=== PATIENT | male | born 1950 | race Caucasian/White ===

== ENCOUNTER 2017-09-16 11:48 | Inpatient (IN) | payer MEDICARE ==
[~2017-09-16] VITALS: Ht 172.7 cm; Wt 102.0 kg
[~2017-09-16 11:48] MED LIST: BACL10TA PO; LORA0.5T PO
[2017-09-16] MEDS ORDERED: normal saline 1000ML IV soln IV ONE (12:15)
[2017-09-16 12:48] LABS: COLOR,URINE Yellow (Yellow); GLUCOSE, URINE Negative (Neg); KETONES,URINE Negative (Neg); LEUKOCYTE ESTERASE ,URINE Moderate (Neg); NITRITES, URINE Negative (Neg); OCCULT BLOOD,URINE Moderate (Neg); PROTEIN,URINE Negative (Neg)
[2017-09-16 12:51] LABS: CLARITY,URINE SLIGHTLY CLOUDY (Clear); UA COLLECTION TYPE VOIDED
[2017-09-16 12:56] LABS: BACTERIA,URINE 2+ /HPF (Neg); MUCUS STRANDS FEW /LPF (Neg); RBC,URINE 50-100 /HPF (0-2); SQUAMOUS EPITHELIAL CELL,UR FEW /LPF (FEW); WBC CLUMPS,URINE FEW /HPF (NEGATIVE)
[2017-09-16 13:01] LABS: BASOPHILS % (AUTO) 0.3 % (0-1); EOSINOPHILS % (AUTO) 0 % (0-6); HEMATOCRIT 42.9 % (42.0-52.0); HEMOGLOBIN 14.4 g/dl (14.0-17.9); LYMPHOCYTES # (AUTO) 0.3 X10'3 (1.1-4.8); LYMPHOCYTES % (AUTO) 4.2 % (21-51); MEAN CORPUSCULAR HEMOGLOBIN 32.1 PG (27.0-31.0); MEAN CORPUSCULAR HGB CONC 33.5 % (33.0-36.5); MEAN CORPUSCULAR VOLUME 95.9 FL (78-98); MEAN PLATELET VOLUME 9.8 FL (7.4-10.4); MONOCYTES % (AUTO) 0.2 % (2-12); NEUTROPHILS # (AUTO) 6.3 X10'3 (1.8-7.7); NEUTROPHILS % (AUTO) 95.3 % (42-75); PLATELET COUNT 119 X10'3 (140-440); RED BLOOD COUNT 4.47 X10'6 (4.70-6.10); RED CELL DISTRIBUTION WIDTH 14.5 % (11.5-14.5); WHITE BLOOD COUNT 6.6 X10'3 (4.5-11.0)
[2017-09-16 13:11] LABS: INR 1.2 INR; PARTIAL THROMBOPLASTIN TIME 25 SECONDS (22-32)
[2017-09-16 13:16] LABS: ALANINE AMINOTRANSFERASE 35 U/L (12-78); ALBUMIN 3.7 G/DL (3.4-5.0); ALBUMIN/GLOBULIN RATIO 1.1 (1.1-1.5); ALKALINE PHOSPHATASE 133 IU/L (46-116); ANION GAP 10 (8-16); ASPARTATE AMINO TRANSFERASE 24 U/L (10-37); BILIRUBIN,TOTAL 0.6 MG/DL (0.1-1.0); BLOOD UREA NITROGEN 15 MG/DL (7-18); CALCIUM 7.8 MG/DL (8.5-10.1); CHLORIDE 108 MMOL/L (99-107); CREATININE 0.79 MG/DL (0.60-1.10); GLUCOSE 85 MG/DL (70-104); MAGNESIUM 1.8 MG/DL (1.5-2.4); POTASSIUM 4.1 MMOL/L (3.5-5.1); SODIUM 141 MMOL/L (135-145); TOTAL CARBON DIOXIDE 22.6 MMOL/L (24-32); TOTAL PROTEIN 7.2 G/DL (6.4-8.2); eGFR > 90 ML/MIN
[2017-09-16] MEDS ORDERED: CefTRIAXone 2gm/D5W 50ml 50 ML IV ONE (13:25)
[2017-09-16] MEDS ORDERED: baclofen 10mg tablet PO PRN (13:50)
[2017-09-16] MEDS ORDERED: magnesium hydroxide 30ml (MOM) UD suspension PO PRN (13:50)
[2017-09-16] MEDS ORDERED: acetaminophen 325mg tablet PO PRN (13:50)
[2017-09-16] MEDS ORDERED: mag hydrox/Alum hydrox/simeth 30ml oral suspension PO PRN (13:50)
[2017-09-16] MEDS ORDERED: HYDROcodone/acetaminophen 5mg/325mg tablet PO PRN (13:50)
[2017-09-16] MEDS ORDERED: ondansetron/PF 4mg/2ml inj IV PRN (13:50)
[2017-09-16 15:25] VITALS: BP 147/89
[2017-09-16] MEDS ORDERED: CYCL-394 (15:59)
[2017-09-16] MEDS ORDERED: ZOLP5TAB8 PO (15:59)
[2017-09-16] MEDS ORDERED: DOXY100C2 PO (16:04)
[2017-09-16] MEDS ORDERED: FLUT30CR TOP (16:04)
[2017-09-16] MEDS: sodium chloride 0.45% 1,000 ML IV SCH (16:06)
[2017-09-16] MEDS ORDERED: cyclobenzaprine 10mg tablet PO PRN (17:10)
[2017-09-16] MEDS ORDERED: zolpidem 5mg tablet PO PRN (17:10)
[2017-09-16 18:22] VITALS: BP 107/63
[2017-09-16] MEDS ORDERED: LORazepam 0.5 MG tablet PO SCH (20:00)
[2017-09-16] MEDS: lactobacillus rhamnosus 10,000 MMU CELLS/CAPSULE PO SCH (20:26)
[2017-09-16] MEDS ORDERED: tamsulosin 0.4mg capsule PO SCH (21:00)
[2017-09-16] MEDS ORDERED: zolpidem 5mg tablet PO SCH (21:00)
[2017-09-16] MEDS ORDERED: cyclobenzaprine 10mg tablet PO SCH (21:00)
[2017-09-16 22:00] VITALS: BP 100/51
[2017-09-17] MEDS: sodium chloride 0.45% 1,000 ML IV SCH (01:44)
[2017-09-17 06:00] VITALS: BP 107/56
[2017-09-17 06:03] LABS: BASOPHILS % (AUTO) 0.3 % (0-1); EOSINOPHILS # (AUTO) 0.3 X10'3 (0-0.9); EOSINOPHILS % (AUTO) 1.9 % (0-6); HEMOGLOBIN 11.4 g/dl (14.0-17.9); LYMPHOCYTES # (AUTO) 0.8 X10'3 (1.1-4.8); LYMPHOCYTES % (AUTO) 5.5 % (21-51); MEAN CORPUSCULAR HEMOGLOBIN 31.9 PG (27.0-31.0); MEAN CORPUSCULAR HGB CONC 33.6 % (33.0-36.5); MEAN CORPUSCULAR VOLUME 94.9 FL (78-98); MEAN PLATELET VOLUME 10.2 FL (7.4-10.4); MONOCYTES # (AUTO) 0.7 X10'3 (0-0.9); MONOCYTES % (AUTO) 5.1 % (2-12); NEUTROPHILS # (AUTO) 12.8 X10'3 (1.8-7.7); NEUTROPHILS % (AUTO) 87.2 % (42-75); PLATELET COUNT 105 X10'3 (140-440); RED BLOOD COUNT 3.58 X10'6 (4.70-6.10); RED CELL DISTRIBUTION WIDTH 14.1 % (11.5-14.5); WHITE BLOOD COUNT 14.6 X10'3 (4.5-11.0)
[2017-09-17 06:21] LABS: ALBUMIN 2.6 G/DL (3.4-5.0); ANION GAP 11 (8-16); BLOOD UREA NITROGEN 14 MG/DL (7-18); CALCIUM 7.4 MG/DL (8.5-10.1); CHLORIDE 111 MMOL/L (99-107); GLUCOSE 106 MG/DL (70-104); POTASSIUM 3.4 MMOL/L (3.5-5.1); SODIUM 141 MMOL/L (135-145); TOTAL CARBON DIOXIDE 18.7 MMOL/L (24-32); eGFR > 90 ML/MIN
[2017-09-17] MEDS ORDERED: enoxaparin 40mg/0.4ml syringe SQ SCH (08:00)
[2017-09-17] MEDS: lactobacillus rhamnosus 10,000 MMU CELLS/CAPSULE PO SCH (08:09)
[2017-09-17] MEDS ORDERED: potassium Cl 40MEQ/NS 500ml 500 ML IV PRN ×2 (08:25)
[2017-09-17] MEDS ORDERED: SULF1TAB49 PO (08:25)
[2017-09-17] MEDS ORDERED: potassium Cl 20 mEq SR tablet PO PRN ×2 (08:25)
[2017-09-17] MEDS ORDERED: FLO0.4C PO (08:26)
[2017-09-17] MEDS ORDERED: doxycycline hyclate 100mg tablet.DR PO SCH (17:00)
== END 2017-09-17 10:45 | disposition home or self-care (01) | DRG 872 ==
LOC: ER 11:49 → ED HOLD 13:46 → EDBEDREQ 14:54 → ORTHO 4S 15:22
PROVIDERS: ADMIT Internal Medicine; ATTEND Internal Medicine
DX: A41.9 Sepsis, unspecified organism (principal); E86.0 Dehydration; N39.0 Urinary tract infection, site not specified; N40.1 Benign prostatic hyperplasia with lower urinary tract symptoms; R35.1 Nocturia; I10 Essential (primary) hypertension; Z96.642 Presence of left artificial hip joint; Z98.84 Bariatric surgery status; Z88.1 Allergy status to other antibiotic agents; Z79.899 Other long term (current) drug therapy; Z87.440 Personal history of urinary (tract) infections; Z82.49 Family history of ischemic heart disease and other diseases of the circulatory system; Z83.3 Family history of diabetes mellitus
CPT/HCPCS: 36415; 80048; 80053; 81001; 83605; 83735; 84145; 85025; 85610; 85730; 87040; 87070; 87077; 87088; 87186; 96361; 96365; 99285; J0696; J1650; J7030

== ENCOUNTER 2020-03-27 14:47 | Emergency (ER) | payer MEDICARE ==
[~2020-03-27] VITALS: Ht 172.7 cm; Wt 104.5 kg
[~2020-03-27 14:47] MED LIST changes: -BACL10TA PO; +CYCL-394; +FLUT30CR TOP; +ZOLP5TAB8 PO
[2020-03-27] MEDS ORDERED: normal saline 1000ML IV soln IV ONE (14:55)
[2020-03-27] MEDS ORDERED: acetaminophen 325mg tablet PO ONE (15:15)
[2020-03-27] MEDS ORDERED: ketorolac trometh. 30mg/ml inj. IV ONE (15:15)
[2020-03-27 15:37] LABS: BASOPHILS % (AUTO) 0.2 % (0-1); EOSINOPHILS # (AUTO) 0.1 X10'3 (0-0.9); EOSINOPHILS % (AUTO) 1.3 % (0-6); HEMATOCRIT 38.8 % (42.0-52.0); HEMOGLOBIN 12.4 g/dl (14.0-17.9); LYMPHOCYTES # (AUTO) 0.4 X10'3 (1.1-4.8); LYMPHOCYTES % (AUTO) 8.5 % (21-51); MEAN CORPUSCULAR HEMOGLOBIN 32.4 PG (27.0-31.0); MEAN CORPUSCULAR VOLUME 101.3 FL (78-98); MEAN PLATELET VOLUME 9.6 FL (7.4-10.4); MONOCYTES % (AUTO) 0.8 % (2-12); NEUTROPHILS # (AUTO) 4.4 X10'3 (1.8-7.7); NEUTROPHILS % (AUTO) 89.2 % (42-75); PLATELET COUNT 160 X10'3 (140-440); RED BLOOD COUNT 3.83 X10'6 (4.70-6.10); RED CELL DISTRIBUTION WIDTH 14.5 % (11.5-14.5)
[2020-03-27 15:53] LABS: ALANINE AMINOTRANSFERASE 28 U/L (12-78); ALBUMIN 3.6 G/DL (3.4-5.0); ALBUMIN/GLOBULIN RATIO 1.1 (1.1-1.5); ALKALINE PHOSPHATASE 129 IU/L (46-116); ANION GAP 10 (8-16); ASPARTATE AMINO TRANSFERASE 20 U/L (10-37); BILIRUBIN,TOTAL 0.5 MG/DL (0.1-1.0); BLOOD UREA NITROGEN 14 MG/DL (7-18); BUN/CREATININE RATIO 15.2 (5.4-32.0); CALCIUM 7.6 MG/DL (8.5-10.1); CHLORIDE 106 MMOL/L (99-107); CREATININE 0.92 MG/DL (0.60-1.10); GLUCOSE 93 MG/DL (70-104); MAGNESIUM 1.6 MG/DL (1.5-2.4); POTASSIUM 4.1 MMOL/L (3.5-5.1); SODIUM 138 MMOL/L (135-145); TOTAL CARBON DIOXIDE 22.5 MMOL/L (24-32); eGFR 81 ML/MIN
[2020-03-27 16:00] LABS: CLARITY,URINE SLIGHTLY CLOUDY (Clear); COLOR,URINE YELLOW (Yellow); GLUCOSE, URINE NEGATIVE (Neg); KETONES,URINE NEGATIVE (Neg); LEUKOCYTE ESTERASE ,URINE SMALL (Neg); NITRITES, URINE POSITIVE (Neg); OCCULT BLOOD,URINE LARGE (Neg); PROTEIN,URINE NEGATIVE (Neg); UROBILINOGEN,URINE 0.2 E.U/dL (0.2-1.0)
[2020-03-27 16:07] LABS: UA COLLECTION TYPE CLN CATCH MIDSTREAM
[2020-03-27 16:09] LABS: BACTERIA,URINE 1+ /HPF (Neg)
[2020-03-27 16:10] LABS: MUCUS STRANDS FEW /LPF (Neg); SQUAMOUS EPITHELIAL CELL,UR MODERATE /LPF (FEW)
[2020-03-27] MEDS ORDERED: CefTRIAXone 2gm/D5W 50ml 50 ML IV ONE (16:35)
[2020-03-27 16:49] VITALS: BP 130/76
[2020-03-27] MEDS ORDERED: CEPH500C5 PO (17:13)
--- NOTE | 2020-03-30 10:05 | NUR ---
CALLED LEFT MESSAGE FOR PT. TO RETURN OUR CALL. WE MIGHT NEED TO CHANGE HIS ANTIBIOTIC IF HE IS NOT FEELING BETTER. PT. MAY ALSO NEED TO COME BACK IF HE HAS NOT IMPROVED. IF HE CAN NOT RETURN WE CAN CHANGE HIS ANTIBIOTIC TO AUGMENTIN 875MG BID X 7 DAYS
== END 2020-03-27 18:13 | disposition home or self-care (01) ==
LOC: ER 14:48
DX: N39.0 Urinary tract infection, site not specified (principal); I10 Essential (primary) hypertension; Z98.890 Other specified postprocedural states; Z72.89 Other problems related to lifestyle; Z88.8 Allergy status to other drugs, medicaments and biological substances; Z79.899 Other long term (current) drug therapy
CPT/HCPCS: 36415; 71045; 80053; 81001; 83605; 83735; 84145; 85025; 87040; 87077; 87088; 87186; 93005; 96361; 96365; 96375; 99285; J0696; J1885; J7030

== ENCOUNTER 2022-10-10 15:49 | Emergency (ER) | payer MEDICARE ==
[~2022-10-10] VITALS: Ht 174 cm; Wt 103.2 kg
[2022-10-10 18:09] VITALS: BP 156/86
[2022-10-10] MEDS ORDERED: LIDOcaine 5% patch TP STA (18:31)
[2022-10-10] MEDS ORDERED: traMADol 50MG tablet PO ONE (18:35)
[2022-10-10] MEDS ORDERED: TRAM50TA2 PO (18:36)
[2022-10-10] MEDS ORDERED: LIDO-15 TP (18:36)
== END 2022-10-10 19:41 | disposition home or self-care (01) ==
LOC: ER 15:50
DX: M25.552 Pain in left hip (principal); I11.0 Hypertensive heart disease with heart failure; I50.9 Heart failure, unspecified
CPT/HCPCS: 72170; 99283

== ENCOUNTER 2024-02-25 09:26 | Inpatient (IN) | payer MEDICARE ==
[2024-02-20 12:41] LABS: BILIRUBIN,URINE NEGATIVE (Neg); CLARITY,URINE CLOUDY (Clear); COLOR,URINE YELLOW (Yellow); GLUCOSE, URINE NEGATIVE (Neg); KETONES,URINE NEGATIVE (Neg); LEUKOCYTE ESTERASE ,URINE TRACE (Neg); NITRITES, URINE POSITIVE (Neg); OCCULT BLOOD,URINE SMALL (Neg); PROTEIN,URINE NEGATIVE (Neg); UROBILINOGEN,URINE 0.2 E.U/dL (0.2-1.0)
[2024-02-20 12:46] LABS: BASOPHILS # (AUTO) 0.1 X10'3 (0-0.2); BASOPHILS % (AUTO) 0.9 % (0-1); EOSINOPHILS # (AUTO) 0.2 X10'3 (0-0.9); EOSINOPHILS % (AUTO) 3.3 % (0-6); LYMPHOCYTES # (AUTO) 1.8 X10'3 (1.1-4.8); LYMPHOCYTES % (AUTO) 24.5 % (21-51); MEAN CORPUSCULAR HEMOGLOBIN 33.5 PG (27.0-31.0); MEAN CORPUSCULAR HGB CONC 32.1 g/dL (33.0-36.5); MEAN CORPUSCULAR VOLUME 104.4 FL (78-98); MEAN PLATELET VOLUME 10.9 FL (7.4-10.4); MONOCYTES # (AUTO) 0.5 X10'3 (0-0.9); NEUTROPHILS # (AUTO) 4.8 X10'3 (1.8-7.7); NEUTROPHILS % (AUTO) 64.3 % (42-75); PRE OP HEMATOCRIT 41.1 % (42.0-52.0); PRE OP HEMOGLOBIN 13.2 g/dL (14.0-17.9); PRE OP PLATELET COUNT 142 X10'3 (140-440); PRE OP WHITE BLOOD COUNT 7.4 10'3 (4.8-10.8); RED BLOOD COUNT 3.94 X10'6 (4.70-6.10); RED CELL DISTRIBUTION WIDTH 16.4 % (11.5-14.5)
[2024-02-20 12:50] LABS: MUCUS STRANDS FEW /LPF (Neg); SQUAMOUS EPITHELIAL CELL,UR FEW /LPF (FEW); UA COLLECTION TYPE NON-SPECIFIED
[2024-02-20 12:51] LABS: BACTERIA,URINE 3+ /HPF (Neg); RBC,URINE 0-2 /HPF (0-2); WBC,URINE 20-30 /HPF (0-4)
[2024-02-20 13:01] LABS: ALBUMIN 3.6 G/DL (3.4-5.0); ALBUMIN/GLOBULIN RATIO 1.1 (1.1-1.5); ALKALINE PHOSPHATASE 97 IU/L (46-116); BLOOD UREA NITROGEN 15 MG/DL (7-18); BUN/CREATININE RATIO 18.8 (10.0-20.0); CALCIUM 8.1 MG/DL (8.5-10.1); CHLORIDE 110 MMOL/L (99-107); PRE OP ALT 32 U/L (30-65); PRE OP AST 28 U/L (10-37); PRE OP BILIRUB, TOTAL 0.6 MG/DL (0.0-1.0); PRE OP GLUCOSE 96 MG/DL (70-104); eGFR > 90 ML/MIN
[2024-02-20 13:07] LABS: PRE OP ANION GAP 7 (8-16); PRE OP SODIUM 143 MMOL/L (135-145)
[2024-02-25] VITALS (16 sets, daily range): BP systolic 93–150; BP diastolic 55–97; PULSE 56–77; RESP 14–19; TEMP 97.4–99; O2SAT 64–97
[~2024-02-25] VITALS: Ht 175.3 cm; Wt 103.1 kg
[2024-02-25] MEDS: DOCUMENT DATE & TIME OF BETA-BLOCKER PO ONE (05:30)
[2024-02-25] MEDS: cefazolin 2gm/D5W 100mL 100 ML IV ONE (05:30)
[~2024-02-25 09:26] MED LIST changes: +BACL20TA PO; +CLIN60SO2 TOP; -CYCL-394; +DOXY-224 PO; +FLO0.4C PO; -FLUT30CR TOP; +GABA300C PO; +HYDR-3686 PO; -LORA0.5T PO; +PROP20TA6 PO; +SECU150P SUBCUT; -ZOLP5TAB8 PO
[2024-02-25] MEDS ORDERED: meperidine/PF 25mg/ml syringe IV PRN ×6 (09:50→17:25)
[2024-02-25] MEDS ORDERED: ringers solution, lacted 1,000 ML IV SCH ×2 (09:50→17:25)
[2024-02-25] MEDS ORDERED: morphine 4 MG/ML inj SYRINge IV PRN ×2 (09:50→17:25)
[2024-02-25] MEDS ORDERED: enalaprilat dihydrate 2.5mg/2ml vial IV PRN (09:50)
[2024-02-25] MEDS ORDERED: labetalol 20mg/4ml (5mg/ml) syringe IV PRN ×2 (09:50→17:25)
[2024-02-25] MEDS ORDERED: morphine 2 MG/ML inj. syringe IV PRN ×2 (09:50→17:25)
[2024-02-25] MEDS ORDERED: proCHLORperazine 10 MG/2 ml inj IV PRN ×2 (09:50→17:25)
[2024-02-25] MEDS ORDERED: ondansetron/PF 4mg/2ml inj IV PRN ×3 (09:50→18:20)
[2024-02-25] MEDS: famotidine 20mg tablet PO ONE (10:43)
[2024-02-25] MEDS: tranexamic acid 650mg tablet PO ONE (10:43)
[2024-02-25] MEDS: vancomycin/NS 1 GM in NS 250 ML IV ONE (10:44)
[2024-02-25] MEDS: ringers solution, lacted 1,000 ML IV SCH (10:44)
[2024-02-25] MEDS: tranexamic acid 100mg/ml inj. ONE (15:16)
[2024-02-25] MEDS: mineral oil 10ml sterile, topical TP ONE (15:16)
[2024-02-25] MEDS: ROPIVAcaine 0.5% (5mg/ml) 30ml vial ONE (15:17)
[2024-02-25] MEDS ORDERED: MIDAZolam 1mg/ml 10ml vial ONE (15:43)
[2024-02-25] MEDS ORDERED: BUPIVACAINE/MELOXICAM 14 ML VIAL IL ONE (15:43)
[2024-02-25] MEDS ORDERED: BUPIVAcaine/dex-water/PF 7.5 mg/ml 2ml ampul ONE (15:43)
[2024-02-25] MEDS ORDERED: fentaNYL/PF 50MCG/1 ML 2ML syringe ONE (15:44)
[2024-02-25] MEDS: BUPIVACAINE/MELOXICAM 14 ML VIAL IL ONE (17:13)
[2024-02-25] MEDS ORDERED: propofol inj 20 ML IV ONE ×2 (17:26)
[2024-02-25] MEDS ORDERED: ROPIVAcaine 0.5% (5mg/ml) 30ml vial ONE (17:51)
[2024-02-25] MEDS ORDERED: naloxone 0.4 mg/ml inj IV PRN (18:20)
[2024-02-25] MEDS ORDERED: baclofen 10mg tablet PO PRN (18:20)
[2024-02-25] MEDS ORDERED: hydrOXYzine 25 MG tablet PO PRN (18:20)
[2024-02-25] MEDS ORDERED: acetaminophen 325mg tablet PO PRN (18:20)
[2024-02-25] MEDS ORDERED: bisacodyl 10mg suppository rectal RC PRN (18:20)
[2024-02-25] MEDS ORDERED: diphenhydrAMINE 25mg capsule PO PRN ×2 (18:20)
[2024-02-25] MEDS ORDERED: oxyCODONE IR 5mg (immed. release) tablet PO PRN (18:20)
[2024-02-25] MEDS ORDERED: furosemide 20MG tablet PO PRN (18:20)
[2024-02-25] MEDS ORDERED: magnesium hydroxide 30ml (MOM) UD suspension PO PRN (18:20)
[2024-02-25] MEDS ORDERED: CLINDAMYCIN PHOSPHATE TOP PRN (18:20)
[2024-02-25] MEDS ORDERED: HYDROmorphone inj. 0.5 MG/0.5 ML DISP.SYRIN IV PRN (18:20)
[2024-02-25] MEDS: DOXYCYCLINE 100MG CAPSULE PO SCH (20:48)
[2024-02-25] MEDS: oxyCODONE IR 5mg (immed. release) tablet PO PRN (20:48)
[2024-02-25] MEDS: acetaminophen 325mg tablet PO SCH (20:48)
[2024-02-25] MEDS: sennosides 8.6mg tablet PO SCH (20:49)
[2024-02-25] MEDS: tamsulosin 0.4mg capsule PO SCH (20:49)
[2024-02-25] MEDS: gabapentin 300mg capsule PO SCH (20:49)
[2024-02-25] MEDS: propranolol 40mg tablet PO SCH (20:51)
[2024-02-25] MEDS: losartan 25mg tablet PO SCH (21:00)
[2024-02-25] MEDS: vancomycin/NS 1 GM ADD-VANTAGE 250 ML IV SCH (21:39)
[2024-02-25] MEDS: HYDROmorphone 1 mg/ml syringe IV PRN (21:47)
[2024-02-26] MEDS: ceFAZolin/D5W- 1GM premix 50 ML IV SCH (01:03)
[2024-02-26 02:00] VITALS: BP 124/72; PULSE 58; RESP 16; TEMP 97.9; O2SAT 96
[2024-02-26] MEDS: potassium cl 20mEq in 1/2 NS 1,000 ML IV SCH (02:20)
[2024-02-26 05:51] LABS: BASOPHILS % (AUTO) 0.4 % (0-1); EOSINOPHILS # (AUTO) 0.1 X10'3 (0-0.9); EOSINOPHILS % (AUTO) 1.2 % (0-6); HEMATOCRIT 37.7 % (42.0-52.0); LYMPHOCYTES # (AUTO) 1.2 X10'3 (1.1-4.8); MEAN CORPUSCULAR HEMOGLOBIN 32.8 PG (27.0-31.0); MEAN CORPUSCULAR HGB CONC 31.8 g/dL (33.0-36.5); MEAN CORPUSCULAR VOLUME 103.1 FL (78-98); MEAN PLATELET VOLUME 11.1 FL (7.4-10.4); MONOCYTES # (AUTO) 0.9 X10'3 (0-0.9); MONOCYTES % (AUTO) 8.7 % (2-12); NEUTROPHILS % (AUTO) 77.7 % (42-75); PLATELET COUNT 138 X10'3 (140-440); RED BLOOD COUNT 3.65 X10'6 (4.70-6.10); RED CELL DISTRIBUTION WIDTH 15.6 % (11.5-14.5); WHITE BLOOD COUNT 10.2 X10'3 (4.5-11.0)
[2024-02-26 06:00] VITALS: BP 126/76; PULSE 58; RESP 18; TEMP 96.8; O2SAT 96
[2024-02-26 06:05] LABS: ANION GAP 11 (8-16); CHLORIDE 110 MMOL/L (99-107); POTASSIUM 4.3 MMOL/L (3.5-5.1); SODIUM 142 MMOL/L (135-145); TOTAL CARBON DIOXIDE 21.2 MMOL/L (24-32)
[2024-02-26] MEDS ORDERED: mirabegron 25mg ER tablet PO SCH (08:00)
[2024-02-26 10:00] VITALS: BP 180/70; PULSE 61; RESP 18; TEMP 98.5; O2SAT 95
[2024-02-26] MEDS: atorvastatin 10mg tablet PO SCH (10:31)
[2024-02-26] MEDS: aspirin 325mg tablet PO SCH (10:31)
[2024-02-26] MEDS ORDERED: celeCOXIB 100mg capsule PO SCH (20:00)
[2024-02-27] MEDS ORDERED: acetaminophen 325mg tablet PO PRN (18:20)
[2024-03-24] MEDS ORDERED: SECUKINUMAB SUBCUT SCH (08:00)
== END 2024-02-26 15:48 | disposition home or self-care (01) | DRG 470 ==
LOC: PAS IN 09:26 → ORTHO 4S 19:32
PROVIDERS: ADMIT Orthopaedic Surgery; ATTEND Orthopaedic Surgery
PROC: 8E0YXBZ Computer Assisted Procedure of Lower Extremity (ICD-10-PCS; 2024-02-25)
PROC: 8E0Y0CZ Robotic Assisted Procedure of Lower Extremity, Open Approach (ICD-10-PCS; 2024-02-25)
PROC: 3E0T3BZ Introduction of Anesthetic Agent into Peripheral Nerves and Plexi, Percutaneous Approach (ICD-10-PCS; 2024-02-25)
PROC: 0SRC0J9 Replacement of Right Knee Joint with Synthetic Substitute, Cemented, Open Approach (ICD-10-PCS; principal; 2024-02-25 15:43)
DX: M17.11 Unilateral primary osteoarthritis, right knee (principal); N39.0 Urinary tract infection, site not specified; N28.9 Disorder of kidney and ureter, unspecified; I10 Essential (primary) hypertension; N40.0 Benign prostatic hyperplasia without lower urinary tract symptoms; Z79.899 Other long term (current) drug therapy
CPT/HCPCS: 36415; 80051; 80053; 81001; 82948; 85025; 87077; 87081; 87088; 87186; 97110; 97116; 97162; 97530; A4215; A6258; A7000; C1713; C1776; G0378; J0690; J1170; J2250; J2704; J2795; J3010; J3370; J3480; J3490; J7120

== ENCOUNTER 2024-04-26 13:28 | Emergency (ER) | payer MEDICARE ==
[~2024-04-26] VITALS: Ht 172.7 cm; Wt 100.2 kg
[2024-04-26 13:33] VITALS: TEMP 98
[2024-04-26 15:01] VITALS: BP 119/75; PULSE 86; RESP 16; O2SAT 96
== END 2024-04-26 15:05 | disposition home or self-care (01) ==
LOC: ER 13:29
DX: S90.31XA Contusion of right foot, initial encounter (principal); M25.571 Pain in right ankle and joints of right foot; I11.0 Hypertensive heart disease with heart failure; I50.9 Heart failure, unspecified; Z87.442 Personal history of urinary calculi; Z79.899 Other long term (current) drug therapy; Z98.890 Other specified postprocedural states; Z72.89 Other problems related to lifestyle; V89.2XXA Person injured in unspecified motor-vehicle accident, traffic, initial encounter; Y93.89 Activity, other specified; Y92.89 Other specified places as the place of occurrence of the external cause; Y99.8 Other external cause status
CPT/HCPCS: 73564; 73610; 99284

== ENCOUNTER 2024-05-07 14:53 | Outpatient (CLI) | payer MEDICARE | END 2024-05-07 23:59 | disposition home or self-care (01) | LOC: RAD 14:53 | PROVIDERS: ATTEND Student in an Organized Health Care Education/Training Program | DX: J32.0 Chronic maxillary sinusitis (principal); R41.0 Disorientation, unspecified | CPT/HCPCS: 70450 ==

== ENCOUNTER 2024-11-16 12:18 | Emergency (ER) | payer MEDICARE ==
[~2024-11-16] VITALS: Ht 172.7 cm; Wt 97.9 kg
[~2024-11-16 12:18] MED LIST changes: -FLO0.4C PO; +TAMS-55 PO
[2024-11-16 14:46] LABS: BILIRUBIN,URINE NEGATIVE (Neg); CLARITY,URINE SLIGHTLY CLOUDY (Clear); COLOR,URINE YELLOW (Yellow); GLUCOSE, URINE NEGATIVE (Neg); KETONES,URINE NEGATIVE (Neg); LEUKOCYTE ESTERASE ,URINE SMALL (Neg); NITRITES, URINE POSITIVE (Neg); OCCULT BLOOD,URINE TRACE-INTACT (Neg); PROTEIN,URINE NEGATIVE (Neg); UROBILINOGEN,URINE 0.2 E.U/dL (0.2-1.0)
[2024-11-16 14:50] LABS: UA COLLECTION TYPE CLN CATCH MIDSTREAM
[2024-11-16 14:56] LABS: BACTERIA,URINE 4+ /HPF (Neg); RENAL CELLS, URINE FEW /HPF; SQUAMOUS EPITHELIAL CELL,UR FEW /LPF (FEW); TRANSITIONAL EPI CELLS,URINE FEW /HPF; WBC,URINE 30-50 /HPF (0-4)
--- NOTE | 2024-11-16 15:13 | RADIOLOGY REPORT ---
Indication: pain testicles Technique: Real-time ultrasound images through the scrotum. Comparison: None Findings: Right testicle measures 2.6 x 2.6 x 2.7 cm. No mass identified. There is normal flow on color Dopple r, with normal waveforms. The right epididymal head measures 0.9 cm, and has no focal masses. Left testicle measures 3.9 x 2.9 x 2.9 cm. There is a hypoechoic lesion within the left testicle upp er to midpole measuring 1.7 cm. There is increased vascularity within the left testicular parenchyma with overall heterogeneous appearance. 3 mm left testicular calcification... The left epididymal hea d measures 1.1 cm, and has a very heterogeneous appearance Large right hydrocele, moderate left hydrocele. Impression: 1. Left testicular hypoechoic lesion measuring 1.7 cm. This could represent intratesticular abscess, neoplasm. 2. Increased vascularity within the left testicle with heterogeneous appearance which could be second layla to neoplastic etiology /tumoral infiltration, orchitis. 3. Asymmetrical enlargement of the left testicle. 4. Extremely heterogeneous appearance of the left epididymis. 5. Moderate left and right hydroceles. Recommend urology consultation for further evaluation management.
--- NOTE | 2024-11-16 15:33 | Physician Documentation ---
History of Present Illness ~ Chief Complaint: Testicular Pain Stated Complaint: TESTICULAR PAIN/EDEMA Time Seen by MD: 15:17 Primary Medical Doctor: Ced MIMS 74-year-old male presents to the emergency department with swelling and pain to myself testicle for four days. Pain initially relieved with aspirin and ibuprofen. Last several days pain in his been reoccurring in the swelling has been increasing. Reports no prior history of the same. Reports that he is on doxycycline 100 mg q.day for prophylaxis of HS. Has been without his doxycycline for two weeks. Was treated for UTI with Macrobid one month ago. Denies dysuria yet there was foul smell to his urine. No flank pain, nausea vomiting or fever. Medication Reconciliation Allergies: Coded Allergies: No Known Allergies (Unverified , 11/16/24) Scheduled Doxycycline Hyclate (Doxycycline Hyclate), 1 CAP PO Q12H, (Reported) Gabapentin (Neurontin), 3 CAP PO HS, (Reported) Propranolol Hcl (Propranolol Hcl), 2 TAB PO QPM, (Reported) Secukinumab (Cosentyx Pen (2 Pens)), 1 SYR SUBCUT Q28D, (Reported) Sulfamethoxazole/Trimethoprim (Bactrim Ds Tablet), 1 EACH PO BID Tamsulosin Hcl* (Flomax*), 1 CAP PO HS, (Reported) Scheduled PRN Baclofen (Baclofen), 2 TAB PO HS PRN for muscle spasms, (Reported) Clindamycin Phosphate (Clindamycin Phosphate), 1 APPLIC TOP BID PRN for HS, (Re ported) Hydrocodone Bit/Acetaminophen 5/325 MG (S[place]lake 5/325 MG), 1-2 TAB PO Q4-6 hours PRN for pain Hydroxyzine Hcl* (Atarax*), 1-3 TAB PO HS PRN for RLS, (Reported) Past Medical History Past Medical History: Hypertension, Hernia, Kidney Stones Past Surgical History: abdominal surgery, orthopedic surgeries, other Patient History: (CHF) Congestive heart failure MOTHER, Onset:60 years & older (DM Type 2) Diabetes mellitus type 2 MOTHER, Onset:30's - 40 Alcohol Use: Occasionally Drug Use: none Lives with: Spouse Lives In: Home Physical Exam Vital Signs: RN Vital Signs have been reviewed: Yes, Temperature: 97.5, Source: Temporal, Heart Rate: 77, Respiratory Rate: 16, BP: 147/91, Pulse Oximetry: 97, Weight: 97.900 Oxygen Flow Rate: 0 General Appearance: alert, WD/WN, mild distress EENT: PERRL/EOMI Neck: normal inspection Penile Discharge: none Glans: normal inspection Foreskin: normal inspection Shaft: normal inspection Scrotum: red, swelling Epididymis: normal inspection Testicle: tender Back: normal inspection Extremities: normal range of motion Skin: normal color Lymphatic: no adenopathy Neurologic: oriented x4 Psychiatric: normal mood/affect Progress Progress Note [place] [address] [address] [facility], [facility] [address] ULTRASOUND Patient: KADE JACKSON Medical Record: [id number] [facility] : 1950, Age: 74 Sex: Male Location: ER Patient Status: [facility] ER Service Date/Time: 11/16/241250 Ordering Physician: EASTON QUICK MD Exam: US TESTIC/W/DUPLEX Indication: pain testicles Technique: Real-time ultrasound images through the scrotum. Comparison: None Findings: Right testicle measures 2.6 x 2.6 x 2.7 cm. No mass identified. There is normal flow on color Doppler, with normal waveforms. The right epididymal head measures 0.9 cm, and has no focal masses. Left testicle measures 3.9 x 2.9 x 2.9 cm. There is a hypoechoic lesion within the left testicle upper to midpole measuring 1.7 cm. There is increased vascularity within the left testicular parenchyma with overall heterogeneous appearance. 3 mm left testicular calcification... The left epididymal head measures 1.1 cm, and has a very heterogeneous appearance Large right hydrocele, moderate left hydrocele. Impression: 1. Left testicular hypoechoic lesion measuring 1.7 cm. This could represent intratesticular abscess, neoplasm. 2. Increased vascularity within the left testicle with heterogeneous appearance which could be secondary to neoplastic etiology /tumoral infiltration, orchitis. 3. Asymmetrical enlargement of the left testicle. 4. Extremely heterogeneous appearance of the left epididymis. 5. Moderate left and right hydroceles. Recommend urology consultation for further evaluation management. Electronically Signed by:KATHERYN BRADLEY MD Date & Time: 11/16/241510 Dictated by: KATHERYN BRADLEY MD Dictation date and time: 11/16/241510 Primary Care Provider: NO PRIMARY CARE PROVIDER cc: EASTON QUICK MD ~ Results/Orders Results/Orders Completed Orders - FIDEL ZAMORA Hydrocodone/Apap 5/325mg Tab (S[place]lake 5/32 (11/16/24 16:00) Ceftriaxone Im Kit W/Lidocaine (Rocephin (11/16/24 16:00) Medications Received in ER Medications (Trade) Dose Ordered Sig/Iglberto Route PRN Reason Start Time Stop Time Status Last Admin Dose Admin (Swanlake 5/325mg tablet) 2 tab ONCE ONCE PO 11/16/24 16:00 11/16/24 16:05 DC 11/16/24 16:18 2 TAB (Rocephin 1GM IM kit (w/lidocaine diluent)) 1,000 mg ONCE ONCE IM 11/16/24 16:00 11/16/24 16:04 DC 11/16/24 16:19 1,000 MG Vital Signs 11/16/24 11/16/24 11/16/24 12:31 16:18 16:30 Temp 97.5 97.5 Pulse 77 63 Resp 16 16 16 B/P (MAP) 147/91 144/83 Pulse Ox 97 97 O2 Flow Rate 0 Laboratory Tests Test 11/16/24 14:33 Urine Specimen Description Cln catch midstream Urine Color Yellow Urine Clarity Slightly cloudy Urine pH 6.0 Urine Specific [place] 1.025 Urine Protein Negative Urine Glucose (UA) Negative Urine Ketones Negative Urine Occult Blood Trace-intact Urine Nitrite Positive H Urine Bilirubin Negative Urine Urobilinogen 0.2 Urine Leukocyte Esterase Small H Urine RBC 3-10 Urine WBC 30-50 H Urine Squamous Epithelial Cells Few Urine Transitional Epithelial Cells Few Urine Renal Cells Few Urine Bacteria 4+ Urine Culture Indicated Indicated Volume Urine Centrifuged 10 ml Urine Comment Microbiology Date/Time Source Procedure Growth Status 11/16/24 14:57 Urine Clean Catch Midstream Urine Culture - Preliminary Culture received. Resulted EKG/XRAY/CT/US/VASC/MRI Ultrasound : Impression [facility] [address] [facility], [facility] [address] ULTRASOUND Patient: KADE JACKSON Medical Record: [id number] [facility] : 1950, Age: 74 Sex: Male Location: ER Patient Status: REG ER Service Date/Time: 11/16/24/ 1 Ordering Physician: EASTON QUICK MD Exam: US TESTIC/W/DUPLEX Indication: pain testicles Technique: Real-time ultrasound images through the scrotum. Comparison: None Findings: Right testicle measures 2.6 x 2.6 x 2.7 cm. No mass identified. There is normal flow on color Doppler, with normal waveforms. The right epididymal head measures 0.9 cm, and has no focal masses. Left testicle measures 3.9 x 2.9 x 2.9 cm. There is a hypoechoic lesion within the left testicle upper to midpole measuring 1.7 cm. There is increased vascularity within the left testicular parenchyma with overall heterogeneous appearance. 3 mm left testicular calcification... The left epididymal head measures 1.1 cm, and has a very heterogeneous appearance Large right hydrocele, moderate left hydrocele. Impression: 1. Left testicular hypoechoic lesion measuring 1.7 cm. This could represent intratesticular abscess, neoplasm. 2. Increased vascularity within the left testicle with heterogeneous appearance which could be secondary to neoplastic etiology /tumoral infiltration, orchitis. 3. Asymmetrical enlargement of the left testicle. 4. Extremely heterogeneous appearance of the left epididymis. 5. Moderate left and right hydroceles. Recommend urology consultation for further evaluation management. Electronically Signed by:KATHERYN BRADLEY MD Date & Time: 11/16/241510 Dictated by: KATHERYN BRADLEY MD Dictation date and time: 11/16/241510 Primary Care Provider: NO PRIMARY CARE PROVIDER cc: EASTON QUICK MD ~ Medical Decision Making Additional info obtained from: family Findings exam shows large swollen boggy scrotum with from testicle. The scrotum does transilluminate. It is not high-riding or dusky. Positive cremasteric reflex. If the patient is uncircumcised without lesions to the glans or shaft. Right testes unremarkable. Genital Diff Dx:Considerations: Include: Abscess, Cellulitis, Epididymitis, Hydrocele, Inguinal hernia, Prostatitis, Testicular torsion, Torsion-epididymis, UTI, Other (Tumor mass) Additional Comment 74-year-old male who presents to the emergency department enlarged swollen scrotum requiring immediate ultrasound imaging, pain management and urinalysis. Urinalysis consistent with UTI. Ultrasound imaging suggestive of swelling neoplasm versus an infectious process. Discussed case with urologist on-call who recommends clinic follow up and to be place patient on doxycycline. Patient further a two view it states that he is on doxy q.day prophylaxis for HS your has a had it for two weeks. Patient has had a recent UTI. We will go ahead and provide him a ceftriaxone [address] patient on Bactrim. We will follow urine culture. No clinical suspicion for resistance to E coli thus making Bactrim a good choice. Additionally one avoid fluoroquinolones this point. Patient understands the importance of primary care and Urology follow up. He has safely discharged from the Emergency Department nontoxic well hydrated the appearing. Departure Disposition: HOME / SELF CARE / HOMELESS Impression: Primary Impression: Pain in testicle Qualified Codes: N50.812 - Left testicular pain Additional Impression: UTI (urinary tract infection) Qualified Codes: N30.01 - Acute cystitis with hematuria Condition: Stable Discharge Instructions: Scrotal Swelling, Urinary Tract Infection, Adult Additional Instructions: Today in the emergency department he had ultrasound obtained that requires urology follow up. He will be placed on outpatient antibiotic called Bactrim. In the emergency department you received ceftriaxone injection and pain management. Additionally I will be sent and pain management to your pharmacy. Please continue with the doxycycline as prescribed for your HS. Pain continues or you develop fever or back pain please return to the emergency department for further evaluation. Thank you for visiting [facility]. Referrals: ALEENA PETTY MD 5 days Prescriptions Hydrocodone Bit/Acetaminophen 5/325 MG (S[place]lake 5/325 MG) 5 Mg/325 Mg Tablet 1-2 TAB PO Q4-6 hours PRN for pain, #16 TAB Prov: FIDEL ZAMORA 11/16/24 Sulfamethoxazole/Trimethoprim (Bactrim Ds Tablet) 800 Mg-160 Mg Tablet 1 EACH PO BID, #20 TAB Prov: FIDEL ZAMORA 11/16/24 Education Educated: Patient, Family Educated regarding: diagnosis, treatment Signature Scribe Signature: . Attestation: . POLI BARKSDALE NP Nov 16, 2024 15:33 FIDEL ZAMORA Nov 16, 2024 16:12
[2024-11-16] MEDS ORDERED: HYDR-3965 PO (16:09)
[2024-11-16] MEDS ORDERED: SULF1TAB49 PO (16:09)
[2024-11-16] MEDS: HYDROcodone/acetaminophen 5mg/325mg tablet PO ONE (16:18)
[2024-11-16] MEDS: CefTRIAXone 1000mg IM Kit (w/lidocaine diluent) IM ONE (16:19)
[2024-11-16 16:30] VITALS: BP 144/83; PULSE 63; RESP 16; TEMP 97.5; O2SAT 97
== END 2024-11-16 16:32 | disposition home or self-care (01) ==
LOC: ER 12:18
DX: N50.812 Left testicular pain (principal); N39.0 Urinary tract infection, site not specified; I11.0 Hypertensive heart disease with heart failure; I50.9 Heart failure, unspecified
CPT/HCPCS: 76870; 81001; 87088; 93976; 96372; 99285; J0696; 87077; 87186

== ENCOUNTER 2025-02-17 07:09 | Observation (INO) | payer MEDICARE ==
[2025-02-11 11:49] LABS: MEAN PLATELET VOLUME 10.7 FL (7.4-10.4); PRE OP HEMATOCRIT 44.1 % (42.0-52.0); PRE OP HEMOGLOBIN 14.6 g/dL (14.0-17.9); PRE OP PLATELET COUNT 167 X10'3 (140-440); PRE OP WHITE BLOOD COUNT 9.0 10'3 (4.8-10.8); RED CELL DISTRIBUTION WIDTH 15.6 % (11.5-14.5)
[2025-02-11 12:06] LABS: CREATININE 1.01 MG/DL (0.60-1.10); PRE OP ALT 32 U/L (30-65); PRE OP ANION GAP 4 (8-16); PRE OP AST 19 U/L (10-37); PRE OP BILIRUB, TOTAL 0.7 MG/DL (0.0-1.0); PRE OP GLUCOSE 100 MG/DL (70-104); PRE OP POTASSIUM 4.3 MMOL/L (3.4-5.1); PRE OP SODIUM 137 MMOL/L (135-145); TOTAL CARBON DIOXIDE 27.0 MMOL/L (24-32); eGFR 72 ML/MIN
[~2025-02-17] VITALS: Ht 172.7 cm; Wt 99.8 kg
[2025-02-17] VITALS (18 sets, daily range): BP systolic 94–153; BP diastolic 56–92; PULSE 61–78; RESP 14–20; TEMP 97.1–99.5; O2SAT 94–99
[2025-02-17] MEDS: MESSAGE TO NURSING PO ONE (05:30)
[2025-02-17] MEDS: ringers solution, lacted 1,000 ML IV SCH ×3 (05:30→08:00)
[2025-02-17] MEDS: ceFAZolin 2gm/dext,iso 50mL 50 ML IV ONE (05:46)
[2025-02-17] MEDS: DOCUMENT DATE & TIME OF BETA-BLOCKER PO ONE (05:46)
[~2025-02-17 07:09] MED LIST changes: +BUPIVACAINE/MELOXICAM 14 ML VIAL IL ONE; -DOXY-224 PO; +MELA10TA2 PO; +PROP10TA10 PO; -PROP20TA6 PO; -SECU150P SUBCUT; +mineral oil 10ml sterile, topical TP ONE
[2025-02-17] MEDS ORDERED: labetalol 20mg/4ml (5mg/ml) syringe IV PRN (08:00)
[2025-02-17] MEDS ORDERED: ondansetron/PF 4mg/2ml inj IV PRN ×2 (08:00→09:40)
[2025-02-17] MEDS ORDERED: hydrALAZINE 20mg/ml inj. IV PRN (08:00)
[2025-02-17] MEDS ORDERED: fentaNYL/PF 50MCG/1 ML 2ML syringe IV PRN ×2 (08:00)
[2025-02-17] MEDS ORDERED: morphine 4 MG/ML inj SYRINge IV PRN (08:00)
[2025-02-17] MEDS: VANCOMYCIN/H2O 1.5g/300mL PB 300 ML IV ONE (08:14)
[2025-02-17] MEDS ORDERED: MEPIVAcaine /PF 20mg/ml 20ml SDV ONE (08:53)
[2025-02-17] MEDS ORDERED: BUPIVAcaine/PF 5 mg/ml 10ml ONE (08:53)
[2025-02-17] MEDS ORDERED: tetracaine 1% (10mg/ml) pres. free inj. ONE (08:54)
[2025-02-17] MEDS ORDERED: BUPIVACAINE liposomal/PF 13.3 MG/ML 10mL vial IM ONE (08:54)
[2025-02-17] MEDS ORDERED: MIDAZolam 1mg/ml 10ml vial ONE (08:56)
[2025-02-17] MEDS ORDERED: phenylephrine 10mg/ml inj. ONE (09:00)
[2025-02-17] MEDS ORDERED: bisacodyl 10mg suppository rectal RC PRN (09:40)
[2025-02-17] MEDS ORDERED: PCA WASTE DOCUMENTATION 1 MG ML MC SCH (09:40)
[2025-02-17] MEDS: potassium cl 20mEq in 1/2 NS 1,000 ML IV SCH (09:40)
[2025-02-17] MEDS ORDERED: magnesium hydroxide 30ml (MOM) UD suspension PO PRN (09:40)
[2025-02-17] MEDS ORDERED: propofol inj 20 ML IV ONE ×2 (09:53)
[2025-02-17] MEDS ORDERED: fentaNYL/PF 50MCG/1 ML 2ML syringe ONE (09:53)
--- NOTE | 2025-02-17 10:14 | ANESTHESIA RECORDS ---
Nerve Block Providers to CC CC: KD PERDUE MD ~ Diagnosis: Nerve Block requested by: KD PERDUE MD Neuraxial/Peripheral Nerve Block requested for Post-operative analgesia by Physician above DIAGNOSIS: Post-operative pain. (Body Area) Shoulder: [ ] Arm: [ ] Hand: [ ] Hip: [ ] Knee: [ Left ] Ankle: [ ] Foot: [ ] Leg: [ ] Abdomen: [ ] Other: [ ] Post-operative pain expected to be/is inadequately managed by oral or IV medicines. Regional anesthetic expected to facilitate rehabilitation and/or discharge from facility. Other:[ _] Procedure Performed: Femoral / Saphenous: Left Time out Done?: Yes Time of Time out: 10:02 Procedure Details: PROCEDURE DETAILS: Risks, benefits and alternatives explained Informed consent obtained, and patient wishes to proceed Conscious sedation with indicated monitors Patient positioned, pertinent anatomy defined, sterile technique used Needle used: [ ] 3 1/8 inch Stimuplex Ultra 22ga [ ] 4 inch Stimuplex Ultra 20ga [ X] 6 inch Stimuplex Ultra 20ga [ ] 6 inch, Quikbloc over the needle catheter set 20ga [ ] 4 inch Quikbloc over the needle catheter set 20ga [ ]Other: [ ] Loss of twitch @ [ ]mA [ X] Single Injection [ ] Catheter Ultrasound Guidance Used: [ X] Yes [ ] No Attempts:[___1 ] Medicines injected: [ ]Clonidine Amt:[ ] [ ]Dexamethasone Amt:[ ] [ ]Ropivacaine Amt:[ ] [ X ]Bupivacaine Amt:[___0.5% 20 c.c ] [ ]Lidocaine Amt:[ ] [ X ]Exparel 1.33%:[__10 c.c ] [ ]Epinephrine Amt[ ] [ ]Other: [ ] Intermittent aspiration during local anesthetic administration No symptoms of intraneural or intravenous injection Patient tolerated procedure well Comments Left mid medial thigh is examined with Ultrasound and Adductor canal and vessels in the canal are identified. Needle is placed in the canal. Local mix is injected after negative aspirations. Spread is noted. Ultrasound image is captured and documented. LORETTA WORLEY MD Feb 17, 2025 10:14
[2025-02-17] MEDS ORDERED: MIDAZolam 1 MG/ML 5ML VIAL ONE (11:14)
--- NOTE | 2025-02-17 11:43 | OPERATIVE REPORT ---
Operative Report Operative Report OPERATIVE REPORT [facility] [address] [place] [address] Date of service: February 17, 2025 PREOPERATIVE DIAGNOSIS M17..16 Unilateral primary osteoarthritis, left knee POSTOPERATIVE DIAGNOSIS M17..16 Unilateral primary osteoarthritis, left knee Operation Performed 74814 Total Knee Arthroplasty with [place]: [place] [address] Computer Assisted Navigation Musculoskeletal - Imageless Procedure: Computer-assisted, robotically-assisted, left total knee arthroplasty. Surgeon: Dr. Scott Moran Patternmaker Plaster: Shelley العلي PA-C Anesthesiologist: Dr. Morris Anesthesia: Spinal anesthetic Indications: 74-year-old male who has chronic osteoarthritis of the left knee with severe pain and limitation of activities despite extensive non-operative management. This patient has had extensive conservative treatment of knee joint arthritis, including rest, external joint support, anti-inflammatory medications, physical therapy, and corticosteroid injection. Physical therapy has been provided, along with a home exercise program prior to making the decision to proceed with surgical treatment. This therapeutic intervention did not provide any substantial relief of symptoms or improvement in function. The patient has been utilizing a cane, set of crutches, or walker, for more than 3 months prior to deciding to proceed with surgery. These interventions have not provided sufficient relief of pain to allow improvement in function. The patient has utilized non-steroidal anti-inflammatory medications for relief of pain over an extended period of time (more than 2 months), and has not experienced sufficient improvement in symptoms. Despite these treatments, this patient has continued difficulties with pain and limited function. They are unable to walk long distances, do vigorous activities, sit or sleep comfortably. Total knee replacement is the next reasonable step in terms of treatment. Indications for intellectual property legal assistant surgeon: A second set of skilled hands with specific orthopedic knowledge of the surgical procedure and orthopedic surgical techniques was necessary to accomplish this operation successfully, and with the least amount of morbidity for the patient. This facilitated operative exposure, manipulation and handling of tissues, placement of any implants, and accomplishment of wound closure. Findings: There was indeed a very severely arthritic knee, with loss of cartilage, exposed bone, and marginal osteophytes. The medial compartment was particularly bad. A 9 degree varus deformity and 7 degree extension deformity were measured preoperatively. Post operative alignment was 1 degree varus, and 3 extension. Complications: None Estimated Blood Loss: 150 mL Implants: A Riya Persona CR total knee system was utilized with a size eight left bone ingrowth femoral component, a size F left bone ingrowth tibial component, and a 38 mm cemented patellar component. A 14 mm medial congruent right tibial insert was utilized. The [employer] robotically assisted total knee arthroplasty system and computer was utilized. Procedure: The risks, benefits, expected results, and possible complications of the planned procedure had been explained to the patient and informed consent obtained. The patient was taken to the operating room and underwent a spinal anesthetic. The patient was placed in the supine position on the operating table, and the left leg was prepped and draped in the usual fashion. A timeout was taken prior to surgery, confirming patient identification, operative side operative site, planned procedure, administration of pre-operative antibiotics, site marking, and presence of all necessary implants and instruments, x-rays and equipment. A standard anterior, slightly mediall approach was performed with a medial parapatellar arthrotomy, and a VMO split. Time was then spent removing excessive synovial tissue and exposing the medial and lateral gutters, as well as moving the anterior sections of the residual menisci. The patella was mobilized to be able to be retracted laterally. This gave exposure of the anterior aspect of the knee. Attention was then directed to the patella. An oscillating saw was utilized to make a flat cut in a freehand manner, removing approximately 9 mm of thickness. The patella was then sized and drilled for the appropriate size patella implant. Infrared arrays were then placed on the femur and the tibia. Utilizing the [employer] computer system, the hip, knee, and ankle were landmarked in usual fashion. The initial alignment measurements were then taken confirming the above listed deformity. Surgical planning was then carried out on the computer, confirming alignment of components, sizing, and gap balancing. Appropriate soft tissue releases were performed. The robot was then utilized to make the distal femoral cut. The femur was prepared in 4 degrees of flexion and neutral coronal alignment. The distal femoral 4 in 1 block was placed with the robot, and the remaining femoral cuts also performed. The robot was then utilized to cut the proximal tibia in 5 degrees of flexion and neutral coronal alignment. The computer was then utiliz ed to check longitudinal alignment and soft tissue balance, and this confirmed excellent alignment. Next the dynamic balancing block was utilized to check and adjust soft tissue balancing. A repeat cut of the tibia was performed to gain appropriate soft tissue balance Finally, attention was directed to the proximal tibia. The implant was sized and properly rotated, and the peg punch performed. Final check of alignment and balancing was then carried out, as well as final removal and cleaning up of soft tissue such as meniscal remnants and osteophytes. Cement was then mixed; one batch was utilized for the patella. The tibia was im pacted with the mallet, seating it quite nicely in its proper rotational alignment. The femoral cuts were cleaned with a pulsating lavage and then dried with the lap sponges, and the femur was impacted into position with a mallet. The patella was held firmly in place with a clamp. Excess cement was removed around the margins of the patella as the cement cured. Pressure was held on the femoral component and tibia by placing a spacer and bringing the leg to full extension and applying axial and hyperextension force. Upon complete hardening of all cement, the knee was inspected and excess cement removed. We lavaged the knee to wash out any debris. The tibial trial spacer was replaced and overall alignment checked with computer, ensuring we had full extension of the knee, and appropriate medial and lateral soft tissue balance, as well as flexion and extension balance. The wound was irrigated thoroughly one more time and then dried with lap sponges. The final tibial spacer was impacted and locked into the locking mechanism without difficulty After final irrigation and suction of excess fluid, t yes he knee was infiltrated with Zynrelief for postoperative pain control. The tibial and femoral navigation pins and arrays were removed. The wound was then closed in layers including retinacular closure, subcutaneous tissue, and skin. Sterile dressing was applied and the patient was returned to the recovery room in satisfactory condition. Electronically Signed by: Scott Moran MD Doctor, Orthopedic Surgery Signed on: 02/17/2025 11:40 AM SCOTT MORAN MD Feb 17, 2025 11:43
[2025-02-17] MEDS: ceFAZolin/D5W- 1GM premix 50 ML IV SCH (19:58)
[2025-02-17] MEDS: propranolol 10mg tablet PO SCH (19:58)
[2025-02-17] MEDS: vancomycin/NS 1 GM ADD-VANTAGE 250 ML IV SCH (22:01)
[2025-02-17] MEDS: oxyCODONE IR 5mg (immed. release) tablet PO PRN (22:16)
[2025-02-18 05:03] LABS: MEAN PLATELET VOLUME 11.0 FL (7.4-10.4); RED CELL DISTRIBUTION WIDTH 15.4 % (11.5-14.5)
[2025-02-18 05:35] LABS: TOTAL CARBON DIOXIDE 23.8 MMOL/L (24-32)
[2025-02-18 06:00] VITALS: BP 124/73; PULSE 74; RESP 15; TEMP 98; O2SAT 96
--- NOTE | 2025-02-18 07:28 | DISCHARGE SUMMARY ---
Discharge Summary Ortho CC ~ Discharge Summary *Problems/Diagnosis: (1) S/P total knee arthroplasty Status: Acute Admission Diagnosis: Osteoarthritis Discharge Diagnosis\Comment: see above Operations\Procedures see above Consultants: none Complications: none Condition on DC: Stable Discharge Summary: Patient underwent surgery listed above on date of admission. Surgery went well and without complication. Overnight admission was uneventful and patient is stable. Patient has been cleared by physical therapy and is safe for discharge home. Total Time Spent on D/C: Up to 30 Minutes Medications Home Meds: Home Medications Active Reported Melatonin 10 Mg Tablet 1 Tab PO HS 30 Days Propranolol Hcl 10 Mg Tablet 1 Tab PO Q12H 30 Days Neurontin (Gabapentin) 300 Mg Capsule 2 Cap PO HS 30 Days Atarax* (Hydroxyzine HCl) 25 Mg Tablet 50 Mg PO HS PRN Baclofen 20 Mg Tablet 1 Tab PO HS PRN 30 Days Clindamycin Phosphate 1 % Solution 1 Applic TOP BID PRN Flomax* (Tamsulosin HCl) 0.4 Mg Cap.sr.24h 1 Cap PO HS Supervising Physician Supervising Physician: Dr. Scott Moran Problem Qualifiers (1) S/P total knee arthroplasty: Qualified Codes: Z96.652 - Presence of left artificial knee joint BALJIT SPRAGUE PAC Feb 18, 2025 07:28
[2025-02-24] MEDS ORDERED: CEFD300C21 PO (03:28)
[2025-02-24] MEDS ORDERED: PROP20TA6 PO (03:28)
[2025-02-24] MEDS ORDERED: CHOL100046 PO (03:28)
[2025-02-24] MEDS ORDERED: ACET-75 PO (03:28)
[2025-02-24] MEDS ORDERED: ASPI-1264 PO (03:28)
[2025-02-24] MEDS ORDERED: IBUP600T52 PO (03:28)
[2025-02-24] MEDS ORDERED: TAMS-55 PO (03:28)
[2025-02-24] MEDS ORDERED: CYCL-1 PO (15:28)
[2025-02-27] MEDS ORDERED: LEVO-65 PO (13:29)
[2025-02-27] MEDS ORDERED: FLUC100T64 PO (13:29)
== END 2025-02-18 13:06 | disposition home health service (06) ==
LOC: PAS 07:09 → ORTHO 4S 07:10 → PAS 09:45 → ORTHO 4S 02-18 13:06 → PAS 02-18 13:06
PROVIDERS: ADMIT Orthopaedic Surgery; ATTEND Orthopaedic Surgery
DX: M17.12 Unilateral primary osteoarthritis, left knee (principal); N39.0 Urinary tract infection, site not specified; N40.0 Benign prostatic hyperplasia without lower urinary tract symptoms; Z79.899 Other long term (current) drug therapy; Z98.890 Other specified postprocedural states
CPT/HCPCS: 20985; 27447; 80051; 80053; 82948; 96365; 96366; 96367; 96375; 97161; A4215; A6446; A7000; C1713; C1776; C9088; G0378; J0665; J0666; J0670; J0690; J2371; J3375; J3480; J3490; J7120; 36415; 85025; 87081; 97110; 97116; 97530; A6253; A6449; J2250; J2704; J3010; J3373